=== PATIENT | female | born 1960 | race Caucasian/White ===

== ENCOUNTER 2025-09-23 08:23 | Inpatient (IN) ==
[2025-09-23 09:23] LABS: Basophils # (Auto) 0 K/mcL (0.00-0.30); Basophils % (Auto) 0 % (0.0-2.0); Eosinophils # (Auto) 0.05 K/mcL (0.00-0.70); Eosinophils % (Auto) 0.5 % (0.0-7.0); Hematocrit 34.2 % (34.1-44.9); Hemoglobin 11.6 g/dL (11.2-15.7); Lymphocytes # (Auto) 1.41 K/mcL (1.50-4.80); Lymphocytes % (Auto) 14.9 % (15.5-49.0); Mean Corpuscular HGB Conc 33.9 g/dL (31.0-36.0); Monocytes # (Auto) 0.72 K/mcL (0.10-0.90); Monocytes % (Auto) 7.6 % (1.0-12.0); Neutrophils % (Auto) 76.7 % (38.0-78.0); Platelet Count 244 K/mcL (140-440); RBC 3.70 M/mcL (3.59-5.38); WBC 9.4 K/mcL (4.5-11.0)
[2025-09-23 09:46] LABS: ALT/SGPT 11 U/L (<40); AST/SGOT 17 U/L (<32); Albumin 3.9 gm/dL (3.2-5.2); Albumin/Globulin Ratio 1.3 (1.0-2.3); Alkaline Phosphatase 65 U/L (39-117); Anion Gap 14.0 (8.0-16.0); Bilirubin,Total 0.8 mg/dL (0.1-1.0); Blood Urea Nitrogen 20 mg/dL (8-23); Calcium 8.7 mg/dL (8.6-10.4); Carbon Dioxide 21 mmol/L (22-30); Chloride 85 mmol/L (96-108); Globulin 3.0 gm/dL (2.2-3.7); Glucose 114 mg/dL (70-105); Potassium 4.2 mmol/L (3.3-5.1); Sodium 120 mmol/L (133-145)
[2025-09-23 10:04] LABS: INR 1.2 (0.9-1.1); Prothrombin Time 16.6 sec (11.9-14.5)
[2025-09-23 11:46] LABS: Thyroid Stimulating Hormone 0.13 uIU/mL (0.27-5.01)
[2025-09-23 11:47] LABS: Free T3 1.6 pg/mL (2.0-4.4)
[2025-09-23 13:47] LABS: Sodium 121 mmol/L (133-145)
[2025-09-23] MEDS ORDERED: POLYETHYLENE GLYCOL 3350 17 GM PACKET PO PRN (15:13)
[2025-09-23 16:26] LABS: Sodium 122 mmol/L (133-145)
[2025-09-23] MEDS ORDERED: DEXTROSE 50% 50 ML VIAL IV PRN (17:30)
[2025-09-23] MEDS ORDERED: DEXTROSE 31 GM ORAL.SUSP PO PRN (17:30)
[2025-09-23 19:30] LABS: Sodium 123 mmol/L (133-145)
[2025-09-23] MEDS: INSULIN LISPRO 1 UNIT/0.01 ML UNIT SQ SCH (20:21)
[2025-09-23] MEDS: 0.9 % SODIUM CHLORIDE 10 ML SYRINGE IV SCH (20:28)
[2025-09-23] MEDS: ATORVASTATIN 40 MG TABLET PO SCH ×2 (20:41→20:42)
[2025-09-23] MEDS: APIXABAN 5 MG TABLET PO SCH (20:41)
[2025-09-23 22:23] LABS: Sodium 125 mmol/L (133-145)
[2025-09-23] MEDS: ACETAMINOPHEN 325 MG TABLET PO PRN (23:21)
[2025-09-24 01:25] LABS: Sodium 125 mmol/L (133-145)
[2025-09-24 04:46] LABS: Basophils # (Auto) 0 K/mcL (0.00-0.30); Basophils % (Auto) 0 % (0.0-2.0); Eosinophils # (Auto) 0.04 K/mcL (0.00-0.70); Eosinophils % (Auto) 0.6 % (0.0-7.0); Hematocrit 34.8 % (34.1-44.9); Hemoglobin 11.5 g/dL (11.2-15.7); Lymphocytes # (Auto) 1.86 K/mcL (1.50-4.80); Lymphocytes % (Auto) 28.1 % (15.5-49.0); Mean Corpuscular HGB Conc 33.0 g/dL (31.0-36.0); Monocytes # (Auto) 0.45 K/mcL (0.10-0.90); Monocytes % (Auto) 6.8 % (1.0-12.0); Neutrophils % (Auto) 64.5 % (38.0-78.0); Platelet Count 224 K/mcL (140-440); RBC 3.68 M/mcL (3.59-5.38); WBC 6.6 K/mcL (4.5-11.0)
[2025-09-24 05:02] LABS: Sodium 127 mmol/L (133-145)
[2025-09-24 05:10] LABS: Anion Gap 12.0 (8.0-16.0); Blood Urea Nitrogen 23 mg/dL (8-23); Calcium 8.9 mg/dL (8.6-10.4); Carbon Dioxide 23 mmol/L (22-30); Chloride 92 mmol/L (96-108); Glucose 140 mg/dL (70-105); Potassium 4.1 mmol/L (3.3-5.1); Sodium 127 mmol/L (133-145)
[2025-09-24 07:43] LABS: Sodium 129 mmol/L (133-145)
[2025-09-24] MEDS ORDERED: ATORVASTATIN 40 MG TABLET PO SCH (09:00)
[2025-09-24] MEDS: MONTELUKAST 10 MG TABLET PO SCH (09:13)
[2025-09-24] MEDS: Fluticasone-Umeclidin-Vilanter [Trelegy Ellipta] Inhaler INH SCH (09:14)
[2025-09-24 10:41] LABS: Sodium 131 mmol/L (133-145)
[2025-09-24] MEDS ORDERED: CALCIUM CARBONATE 500 MG TAB.CHEW CHEWED PRN (19:01)
[2025-09-24 20:43] LABS: Sodium 133 mmol/L (133-145)
[2025-09-24] MEDS: MELATONIN 3 MG TABLET PO PRN (22:26)
[2025-09-25 05:33] LABS: Anion Gap 11.0 (8.0-16.0); Blood Urea Nitrogen 33 mg/dL (8-23); Calcium 8.8 mg/dL (8.6-10.4); Carbon Dioxide 24 mmol/L (22-30); Chloride 96 mmol/L (96-108); Glucose 98 mg/dL (70-105); Potassium 5.1 mmol/L (3.3-5.1); Sodium 131 mmol/L (133-145)
[2025-09-25 05:43] LABS: Basophils # (Auto) 0.01 K/mcL (0.00-0.30); Basophils % (Auto) 0.1 % (0.0-2.0); Eosinophils # (Auto) 0.08 K/mcL (0.00-0.70); Eosinophils % (Auto) 1.1 % (0.0-7.0); Hematocrit 34.4 % (34.1-44.9); Hemoglobin 11.4 g/dL (11.2-15.7); Lymphocytes # (Auto) 2.46 K/mcL (1.50-4.80); Lymphocytes % (Auto) 34.5 % (15.5-49.0); Mean Corpuscular HGB Conc 33.1 g/dL (31.0-36.0); Monocytes # (Auto) 0.70 K/mcL (0.10-0.90); Monocytes % (Auto) 9.8 % (1.0-12.0); Neutrophils % (Auto) 54.2 % (38.0-78.0); Platelet Count 244 K/mcL (140-440); RBC 3.64 M/mcL (3.59-5.38); WBC 7.1 K/mcL (4.5-11.0)
[2025-09-25 08:09] VITALS: TEMP 97.7
[2025-09-25 08:20] LABS: Sodium 134 mmol/L (133-145)
[2025-09-25] MEDS: METOPROLOL SUCCINATE 25 MG TAB.XL.24H PO ONE (10:29)
[2025-09-25 11:05] LABS: Thyroid Stimulating Hormone 0.30 uIU/mL (0.27-5.01)
[2025-09-25 13:09] VITALS: O2SAT 97
[2025-09-26] MEDS ORDERED: LEVOTHYROXINE 150 MCG TABLET PO SCH (07:30)
[2025-09-26] MEDS ORDERED: METOPROLOL SUCCINATE 25 MG TAB.XL.24H PO SCH (09:00)
== END 2025-09-25 13:42 | disposition home health service (06) | DRG 641 ==
LOC: ED 08:23 → ICU 15:01
PROVIDERS: ADMIT Student in an Organized Health Care Education/Training Program; ATTEND Student in an Organized Health Care Education/Training Program